=== PATIENT | female | born 1970 | race Caucasian/White ===

== ENCOUNTER → 2018-03-17 15:06 | Outpatient (CLI) | payer OTHER, SELFPAY ==
--- NOTE | 2018-03-17 15:07 | DI.MG.S_ITS ---
BILATERAL DIGITAL SCREENING MAMMOGRAM 3D/2D WITH CAD: 03/17/2018 CLINICAL: Routine screening. Family history of breast cancer. Comparison is made to exams dated: 03/28/2015 mammogram, 03/17/2015 mammogram, and 02/18/2014 mammogram - [facility]. There are scattered fibroglandular elements in both breasts. Current study was also evaluated with a Computer Aided Detection (CAD) system. No significant masses, calcifications, or other findings are seen in either breast. There has been no significant interval change. IMPRESSION: NEGATIVE There is no mammographic evidence of malignancy. A 1 year screening mammogram is recommended. This exam was interpreted at Station ID: [id number]. NOTE: For mammograms, a report in lay terms will be sent to the patient. Approximately 15% of breast malignancies will not be visualized mammographically. In the management of a palpable breast mass, a negative mammogram must not discourage biopsy of a clinically suspicious lesion. Electronically Signed By: Len duncan/guanakito:03/17/2018 16:21:15 copy to: Lavell Schulz letter sent: Normal Exam ACR BI-RADS Category 1: Negative 3341F
== END ==
PROVIDERS: PCP Family Medicine; Visit Provider Obstetrics & Gynecology
DX: Z12.31 Encounter for screening mammogram for malignant neoplasm of breast (principal); Z80.3 Family history of malignant neoplasm of breast
CPT/HCPCS: 77063; 77067

== ENCOUNTER → 2019-03-23 16:31 | Outpatient (CLI) | payer OTHER, SELFPAY ==
--- NOTE | 2019-03-23 | DI.MG.S_ITS ---
BILATERAL DIGITAL SCREENING MAMMOGRAM 3D/2D WITH CAD: 03/23/2019 CLINICAL: Routine screening. Family history of breast cancer. Comparison is made to exams dated: 03/17/2018 mammogram, 03/28/2015 mammogram, and 03/17/2015 mammogram - [facility]. There are scattered fibroglandular elements in both breasts. Current study was also evaluated with a Computer Aided Detection (CAD) system. No significant masses, calcifications, or other findings are seen in either breast. There has been no significant interval change. IMPRESSION: NEGATIVE There is no mammographic evidence of malignancy. A 1 year screening mammogram is recommended. This exam was interpreted at Station ID: [id number]. NOTE: For mammograms, a report in lay terms will be sent to the patient. Approximately 15% of breast malignancies will not be visualized mammographically. In the management of a palpable breast mass, a negative mammogram must not discourage biopsy of a clinically suspicious lesion. Electronically Signed By: Winston fernandez/guanakito:03/23/2019 18:28:17 copy to: Lavell Schulz letter sent: Normal Exam ACR BI-RADS Category 1: Negative 3341F
== END ==
PROVIDERS: PCP Family Medicine; Visit Provider Obstetrics & Gynecology
DX: Z12.31 Encounter for screening mammogram for malignant neoplasm of breast (principal)
CPT/HCPCS: 77063; 77067

== ENCOUNTER → 2020-03-01 12:28 | Outpatient (CLI) | payer OTHER, SELFPAY ==
[2020-03-01 15:06] LABS: Free T4, Direct Thyroxine 1.03 ng/dL (0.78-2.19)
[2020-03-01 15:19] LABS: Thyroid Stimulating Hormone 1.24 uIU/mL (0.47-4.68)
== END ==
PROVIDERS: PCP Family Medicine; Referring Provider Obstetrics & Gynecology; Visit Provider Obstetrics & Gynecology
DX: E03.9 Hypothyroidism, unspecified (principal)
CPT/HCPCS: 36415; 84439; 84443

== ENCOUNTER → 2020-04-06 16:08 | Outpatient (CLI) | payer OTHER, SELFPAY ==
--- NOTE | 2020-04-06 16:34 | DI.MG.S_ITS ---
Patient Name: KAT YEN date: 1970 Sex: F Attending Physician: Shalini Indications: Date: 04/06/2020 16:30 At the request of: LESLYE IRAHETA Procedure: MM screening mammo BI BILATERAL DIGITAL SCREENING MAMMOGRAM 3D/2D WITH CAD: 04/06/2020 CLINICAL: Routine screening. Family history of breast cancer. Comparison is made to exams dated: 03/23/2019 mammogram, 03/17/2018 mammogram, 03/28/2015 mammogram, and 03/17/2015 mammogram - [facility]. There are scattered fibroglandular elements in both breasts. Current study was also evaluated with a Computer Aided Detection (CAD) system. No significant masses, calcifications, or other findings are seen in either breast. There has been no significant interval change. IMPRESSION: NEGATIVE There is no mammographic evidence of malignancy. A 1 year screening mammogram is recommended. This exam was interpreted at Station ID: [id number]. NOTE: For mammograms, a report in lay terms will be sent to the patient. Approximately 15% of breast malignancies will not be visualized mammographically. In the management of a palpable breast mass, a negative mammogram must not discourage biopsy of a clinically suspicious lesion. Electronically Signed By: Keenan riddle/guanakito:04/06/2020 17:33:29 copy to: Lavell Schulz letter sent: Normal Exam ACR BI-RADS Category 1: Negative 3341F
== END ==
PROVIDERS: PCP Family Medicine; Referring Provider Obstetrics & Gynecology; Visit Provider Obstetrics & Gynecology
DX: Z12.31 Encounter for screening mammogram for malignant neoplasm of breast (principal); Z80.3 Family history of malignant neoplasm of breast
CPT/HCPCS: 77063; 77067

== ENCOUNTER → 2020-04-19 09:39 | Outpatient (CLI) | payer OTHER, SELFPAY ==
--- NOTE | 2020-05-11 09:52 | P.HOLT.S_ITS ---
Institutional Asset Manager Report Referral & Results Date Patient Seen: 04/19/20 Requesting provider: Chelsea Lamar Indication: Palpitations Duration of monitoring (days): 7 Diary information: There were 32 patient triggered events and 18 patient diary entries Patient triggered events were associated variably with sinus rhythm, PVCs, PACs, and ventricular trigeminy Patient diary events were associated with sinus rhythm, ventricular trigeminy, and PVCs Data: Minimum heart rate identified was 52 beats per minute at 05:30 on 04/21/2020 Maximum sinus heart rate was 132 beats per minute at 06:18 on 04/21/2020 Less than 1% of identified beats were supraventricular ectopic in origin Approximately 4.3% of identified beats were ventricular ectopic in origin including a 2 minutes 2nd run of ventricular trigeminy. Patient also had runs of ventricular bigeminy up to 12.9 seconds in duration There was 1 run of nonsustained ventricular tachycardia 3 beats in duration Impression: Patient with ventricular source of sense of palpitations based on patient triggered events and diary entries. However no serious dysrhythmias identified Clinical correlation suggested
== END ==
PROVIDERS: Family Provider Physician Assistant Medical; PCP Family Medicine; Referring Provider Physician Assistant Medical; Visit Provider Physician Assistant Medical
DX: R00.2 Palpitations (principal)
CPT/HCPCS: 0296T; 0298T

== ENCOUNTER → 2021-04-19 17:53 | Outpatient (CLI) | payer OTHER, SELFPAY ==
--- NOTE | 2021-04-19 17:54 | DI.MG.S_ITS ---
BILATERAL DIGITAL SCREENING MAMMOGRAM 3D/2D WITH CAD: 04/19/2021 CLINICAL: Routine screening. Family history of breast cancer. Comparison is made to exams dated: 04/06/2020 mammogram, 03/23/2019 mammogram, and 03/17/2018 mammogram - [facility]. There are scattered fibroglandular elements in both breasts. Current study was also evaluated with a Computer Aided Detection (CAD) system. There is a possible asymmetry in the right breast middle depth central to the nipple seen on the mediolateral oblique view only. There is architectural distortion associated with the asymmetry. No other significant masses, calcifications, or other findings are seen in either breast. IMPRESSION: INCOMPLETE: NEEDS ADDITIONAL IMAGING EVALUATION The possible asymmetry in the right breast is indeterminate. Additional views with possible ultrasound are recommended. This exam was interpreted at Station ID: [id number]. NOTE: For mammograms, a report in lay terms will be sent to the patient. Approximately 15% of breast malignancies will not be visualized mammographically. In the management of a palpable breast mass, a negative mammogram must not discourage biopsy of a clinically suspicious lesion. Electronically Signed By: Colin Cardoso M.D., jr/guanakito:04/20/2021 11:13:37 copy to: Lavell Schulz letter sent: Additional Imaging Needed ACR BI-RADS Category 0: Incomplete 3340F
== END ==
PROVIDERS: Family Provider Physician Assistant Medical; PCP Family Medicine; Referring Provider Obstetrics & Gynecology; Visit Provider Obstetrics & Gynecology
DX: Z12.31 Encounter for screening mammogram for malignant neoplasm of breast (principal)
CPT/HCPCS: 77063; 77067

== ENCOUNTER → 2021-05-10 12:42 | Outpatient (CLI) | payer OTHER, SELFPAY ==
--- NOTE | 2021-05-10 | DI.MG.S_ITS ---
UNILATERAL RIGHT DIGITAL DIAGNOSTIC MAMMOGRAM 3D/2D WITH ADDITIONAL VIEWS: 05/10/2021 CLINICAL: Additional evaluation requested from prior study. Comparison is made to exams dated: 04/19/2021 mammogram, 04/06/2020 mammogram, and 03/23/2019 mammogram - [facility]. There are scattered fibroglandular elements in right breast. The previously seen asymmetry in the right breast is no longer visualized, presumably secondary to superimposed fibroglandular breast tissue on the prior exam. No significant masses, calcifications, or other findings are seen in the breast. IMPRESSION: NEGATIVE There is no mammographic evidence of malignancy. A 1 year screening mammogram is recommended. This exam was interpreted at Station ID: [id number]. NOTE: For mammograms, a report in lay terms will be sent to the patient. Approximately 15% of breast malignancies will not be visualized mammographically. In the management of a palpable breast mass, a negative mammogram must not discourage biopsy of a clinically suspicious lesion. Electronically Signed By: Keenan riddle/guanakito:05/10/2021 13:34:04 copy to: Lavell Schulz letter sent: Normal Exam ACR BI-RADS Category 1: Negative 3341F
== END ==
PROVIDERS: Family Provider Physician Assistant Medical; PCP Family Medicine; Referring Provider Obstetrics & Gynecology; Visit Provider Obstetrics & Gynecology
DX: R92.8 Other abnormal and inconclusive findings on diagnostic imaging of breast (principal)
CPT/HCPCS: 77065; G0279

== ENCOUNTER → 2021-08-10 16:53 | Outpatient (CLI) | payer OTHER, SELFPAY ==
[2021-08-10 18:31] LABS: Free T4, Direct Thyroxine 1.12 ng/dL (0.78-2.19)
[2021-08-10 18:45] LABS: Thyroid Stimulating Hormone 1.18 uIU/mL (0.47-4.68)
== END ==
PROVIDERS: Family Provider Physician Assistant Medical; PCP Family Medicine; Referring Provider Obstetrics & Gynecology; Visit Provider Obstetrics & Gynecology
DX: E03.9 Hypothyroidism, unspecified (principal)
CPT/HCPCS: 36415; 84439; 84443

== ENCOUNTER → 2022-05-21 14:05 | Outpatient (CLI) | payer OTHER, SELFPAY ==
--- NOTE | 2022-05-21 | DI.MG.S_ITS ---
BILATERAL DIGITAL SCREENING MAMMOGRAM 3D/2D WITH CAD: 05/21/2022 CLINICAL: Routine screening. Family history of breast cancer. Comparison is made to exams dated: 05/10/2021 mammogram, 04/19/2021 mammogram, 04/06/2020 mammogram, and 03/23/2019 mammogram - [facility]. There are scattered areas of fibroglandular density in both breasts (category b / 25%-50% glandular tissue). Current study was also evaluated with a Computer Aided Detection (CAD) system. No significant masses, calcifications, or other findings are seen in either breast. There has been no significant interval change. IMPRESSION: NEGATIVE There is no mammographic evidence of malignancy. A 1 year screening mammogram is recommended. Based on the Tyrer Cuzick model (a risk assessment model) the patient's lifetime risk is 6.3% and her 10 year risk is 1.5%. According to the ACR, ACS, and NCCN guidelines, an annual breast MRI exam along with mammogram is recommended if the patient's lifetime risk is 20% or greater. This exam was interpreted at Station ID: [id number]. NOTE: For mammograms, a report in lay terms will be sent to the patient. Approximately 15% of breast malignancies will not be visualized mammographically. In the management of a palpable breast mass, a negative mammogram must not discourage biopsy of a clinically suspicious lesion. Electronically Signed By: Mary mccloud/guanakito:05/21/2022 17:35:45 copy to: Lavell Schulz letter sent: Normal Exam ACR BI-RADS Category 1: Negative 3341F
== END ==
PROVIDERS: Family Provider Physician Assistant Medical; Referring Provider Obstetrics & Gynecology; Visit Provider Obstetrics & Gynecology
DX: Z12.31 Encounter for screening mammogram for malignant neoplasm of breast (principal); Z80.3 Family history of malignant neoplasm of breast
CPT/HCPCS: 77063; 77067

== ENCOUNTER → 2023-07-31 | Outpatient (CLI) | payer OTHER, SELFPAY ==
--- NOTE | 2023-07-31 16:32 | DI.MG.S_ITS ---
BILATERAL DIGITAL SCREENING MAMMOGRAM 3D/2D WITH CAD: 07/31/2023 CLINICAL: Routine screening. Family history of breast cancer. Comparison is made to exams dated: 05/21/2022 mammogram, 04/19/2021 mammogram, and 04/06/[address] - [facility]. There are scattered areas of fibroglandular density in both breasts (category b / 25%-50% glandular tissue). Current study was also evaluated with a Computer Aided Detection (CAD) system. No significant masses, calcifications, or other findings are seen in either breast. There has been no significant interval change. IMPRESSION: NEGATIVE There is no mammographic evidence of malignancy. A 1 year screening mammogram is recommended. Based on the Tyrer Cuzick model (a risk assessment model) the patient's lifetime risk is 6.3% and her 10 year risk is 1.6%. According to the ACR, ACS, and NCCN guidelines, an annual breast MRI exam along with mammogram is recommended if the patient's lifetime risk is 20% or greater. This exam was interpreted at Station ID: [id number]. NOTE: For mammograms, a report in lay terms will be sent to the patient. Approximately 15% of breast malignancies will not be visualized mammographically. In the management of a palpable breast mass, a negative mammogram must not discourage biopsy of a clinically suspicious lesion. Electronically Signed By: Paul burch/guanakito:08/01/2023 13:50:20 copy to: Lavell Schulz letter sent: Normal Exam ACR BI-RADS Category 1: Negative 3341F
== END ==
LOC: MAMMO 16:31
PROVIDERS: Family Provider Physician Assistant Medical; Referring Provider Nurse Practitioner Family; Visit Provider Nurse Practitioner Family
DX: Z12.31 Encounter for screening mammogram for malignant neoplasm of breast (principal); Z80.3 Family history of malignant neoplasm of breast
CPT/HCPCS: 77063; 77067

== ENCOUNTER → 2024-08-02 16:08 | Outpatient (CLI) | payer OTHER, SELFPAY ==
--- NOTE | 2024-08-02 16:09 | DI.MG.S_ITS ---
BILATERAL DIGITAL SCREENING MAMMOGRAM 3D/2D WITH CAD: 08/02/2024 CLINICAL: Routine screening. Family history of breast cancer. Comparison is made to exams dated: 07/31/2023 mammogram, 05/21/2022 mammogram, and 04/19/[address] - [facility]. There are scattered areas of fibroglandular density (category b / 25%-50% glandular tissue). Current study was also evaluated with a Computer Aided Detection (CAD) system. No significant masses, calcifications, or other findings are seen in either breast. There has been no significant interval change. IMPRESSION: NEGATIVE There is no mammographic evidence of malignancy. A 1 year screening mammogram is recommended. Based on the Tyrer Cuzick model (a risk assessment model) the patient's lifetime risk is 6.4% and her 10 year risk is 1.7%. According to the ACR, ACS, and NCCN guidelines, an annual breast MRI exam along with mammogram is recommended if the patient's lifetime risk is 20% or greater. This exam was interpreted at Station ID: [id number]. NOTE: For mammograms, a report in lay terms will be sent to the patient. Approximately 15% of breast malignancies will not be visualized mammographically. In the management of a palpable breast mass, a negative mammogram must not discourage biopsy of a clinically suspicious lesion. Electronically Signed By: Winston fernandez/guanakito:08/03/2024 07:58:47 copy to: Lavell Schulz copy to: Migdalia Loya letter sent: Normal Exam ACR BI-RADS Category 1: Negative
== END ==
PROVIDERS: Family Provider Physician Assistant Medical; PCP Nurse Practitioner Family; Referring Provider Nurse Practitioner Family; Visit Provider Nurse Practitioner Family
DX: Z12.31 Encounter for screening mammogram for malignant neoplasm of breast (principal); Z80.3 Family history of malignant neoplasm of breast
CPT/HCPCS: 77063; 77067